=== PATIENT | female | born 1975 | race Hispanic/Latino ===

== ENCOUNTER 2016-03-19 08:17 | Day surgery (SDC) | payer BC ==
[~2016-03-19 08:17] MED LIST: DIPRIVAN 10 MG/ML IV ONE
[2016-03-19] MEDS ORDERED: WATER FOR IRRIG STERILE IR ONE (08:24)
[2016-03-19] MEDS ORDERED: NACL 0.9% 1000 ML 1,000 ML IV SCH (09:00)
--- NOTE | 2016-03-19 10:45 | Anesthesia Consultation ---
Anesthesia Consult and Med Hx Date of service: 03/19/16 - Airway Anesthetic Teeth Evaluation: Good ROM Head & Neck: Adequate Mental/Hyoid Distance: Adequate Mallampati Class: Class III Intubation Access Assessment: Probably Good - Pulmonary Exam CTA: Yes - Cardiac Exam Cardiac Exam: RRR - Pre-Operative Health Status ASA Pre-Surgery Classification: ASA3 Proposed Anesthetic Plan: MAC - Pulmonary Hx Smoking: Yes (former) - Central Nervous System Hx Psychiatric Problems: Yes (depression) - Other Systems Hx Obesity: Yes - Additional Comments Anesthesia Medical History Comments: NAC
[2016-03-19 12:30] VITALS: BP 115/71
--- NOTE | 2016-03-19 12:32 | Anesthesia Day of Surgery ---
Anesthesia Day of Surgery - Day of Surgery Patient Examined: Yes Patient H&P Reviewed: Yes Patient is NPO: Yes
--- NOTE | 2016-03-19 12:32 | Post Anesthesia Evaluation ---
- Post Anesthesia Evaluation Patient Participated: Yes Airway Patent: Yes Stable Respiratory Function: Yes Nausea/Vomiting: No Temp > 96.8F: Yes Pain Manageable: Yes Adequeate Hydration: Yes Anesthesia Complications: No Block Receding Appropriately: Not Applicable Patient on Ventilator: No
== END 2016-03-19 08:18 | disposition home or self-care (01) ==
LOC: GIO 08:17
PROVIDERS: ATTEND Specialist
DX: K95.09 Other complications of gastric band procedure (principal); K91.1 Postgastric surgery syndromes; F32.9 Major depressive disorder, single episode, unspecified; E66.01 Morbid (severe) obesity due to excess calories; Z68.41 Body mass index [BMI] 40.0-44.9, adult; Z87.891 Personal history of nicotine dependence; Z83.3 Family history of diabetes mellitus; Z82.49 Family history of ischemic heart disease and other diseases of the circulatory system; Z84.1 Family history of disorders of kidney and ureter
CPT/HCPCS: 43235; 81025; J2704; J7030